=== PATIENT | male | born 1965 | race African-American/Black ===

== ENCOUNTER 2017-02-23 22:17 | Emergency (ER) | payer OTHER ==
[~2017-02-23] VITALS: Ht 175.3 cm; Wt 93.0 kg
[~2017-02-23 22:17] MED LIST: ACETAMINOPHEN-1 EAC1 PO; ACETAMINOPHEN325 M1 PO; ACETAMINOPHEN650 M5 PO; ADVAIR 250-501 EACH; ADVAIR 250-501 EACH IH; ADVAIR 250-501 EACH INH; ALBUTEROL INHAL17 GM IH; ALLOPURINOL 10100 M1 PO; ALPRAZOLAM2 MG PO; AMLODIPINE BESYL5 MG PO; AMLODIPINE PO; ANAPROX; ATIVAN1 MG PO; AVELOX 400 MG400 M1 PO; AZITHROMYCIN 2250 MG PO; BACTRIM DS TAB1 EACH PO; BACTRIM PO; BENADRYL25 MG PO; CEFTIN 250 MG250 MG PO; CELEBREX 200 M200 MG PO; CHEWABLE PRENA1 EACH PO; CITALOPRAM; CLEOCIN HCL150 MG PO; CYCLOBENZAPRINE PO; CYCLOBENZAPRINE5 MG PO; DEPAKOTE500 MG; DEPAKOTE500 MG PO; DIVALPROEX SOD250 M3; DOXEPIN 50MG CA50 M1 GT; DOXYCYCLINE 10100 MG PO; FLEXERIL; GABAPENTIN 100100 MG; GLUCOPHAGE500 MG PO; HYDROCHLOROTHIA25 M1 PO; HYDROCHLOROTHIA25 M2 PO; IBUPROFEN 600600 M1 PO; KEFLEX500 MG PO; KENALOG60 GM; LIORESAL 10 MG10 MG; LIPITOR20 MG PO; MECLIZINE HCL12.5 MG PO; METFORMIN; MICARDIS 80 MG80 MG; MICARDIS HCT 41 EACH PO; MICARDIS40 MG PO; MIRALAX17 GM PO; MOBIC7.5 MG PO; NAPROSYN500 MG; NAPROSYN500 MG PO; NEURONTIN 300300 M1 PO; NICOTINE TRANSD21 M1 TRANSDERM; NORCO 10-325 T1 EACH PO; NORCO 5-325 TA1 EACH PO; NORFLEX100 MG PO; OXYCODONE IR; OXYCODONE-ACET1 EAC2 PO; OXYCONTIN20 M1; OXYCONTIN20 M1 PO; OXYCONTIN30 MG PO; PAROXETINE PO; PAXIL40 MG PO; PERCOCET 5-3251 EACH PO; PEXEVA20 MG PO; PHENYTOIN SODI100 M3 PO; POLYTRIM OPTH; PRAZOSIN 1 MG CA1 M1 PO; PREDNISONE 10 M10 M1; PREDNISONE 2.52.5 M1 PO; PREDNISONE 20 M20 M1 PO; PROAIR HFA8.5 GM IH; PROVENTIL HFA6.7 G1 INH; RISPERIDONE 1 MG1 MG PO; ROXICODONE15 M1 PO; SELENIUM SULFIDE; SIMETHICON CHEW80 M1 PO; SINGULAIR 10 MG10 M1; SINGULAIR 10 MG10 M1 PO; SPIRIVA INH; SPIRIVA18 MCG; TESSALON PERLE100 MG PO; TOPROL XL25 MG; TORADOL; TRAMADOL 50 MG50 MG; TRAMADOL 50 MG50 MG PO; TRIAM60; TRIAMCINOLONE A15 G2 TP; VALIUM2 MG; VENTOLIN HFA INH8 GM; VITAMIN B-150 M1 PO; VITAMIN D3400 UNIT; VYTORIN 10-201 EACH PO; WELLBUTRIN XL300 MG PO; XANAX 0.25 MG0.25 MG; ZANTAC 150MG T150 M1 PO; ZOCOR20 MG; ZOFRAN ODT4 MG PO; ZPAK
[2017-02-23] MEDS ORDERED: OXYCONTIN30 MG (23:33)
[2017-02-23] MEDS ORDERED: [UNRECOGNIZED DRUG - OTHER] TOP (23:36)
[2017-02-24] MEDS ORDERED: PERCOCET 5-3251 EACH PO (00:32)
== END 2017-02-24 01:20 | disposition home or self-care (01) ==
LOC: ER 22:17
DX: S82.831A Other fracture of upper and lower end of right fibula, initial encounter for closed fracture (principal); S40.011A Contusion of right shoulder, initial encounter; M17.11 Unilateral primary osteoarthritis, right knee; E11.9 Type 2 diabetes mellitus without complications; I10 Essential (primary) hypertension; J45.909 Unspecified asthma, uncomplicated; J44.9 Chronic obstructive pulmonary disease, unspecified; F17.210 Nicotine dependence, cigarettes, uncomplicated; Z96.642 Presence of left artificial hip joint; Z88.5 Allergy status to narcotic agent; Z88.6 Allergy status to analgesic agent; W10.9XXA Fall (on) (from) unspecified stairs and steps, initial encounter; Y93.89 Activity, other specified; Y92.89 Other specified places as the place of occurrence of the external cause; Y99.8 Other external cause status

== ENCOUNTER 2019-12-03 21:04 | Emergency (ER) | payer OTHER ==
[~2019-12-03] VITALS: Ht 175.3 cm; Wt 83.9 kg
--- NOTE | ~2019-12-03 | EMS ---
[facility] [address] [place] [address] EMS Patient Care Report Name: BALJIT BLEDSOE Room #: DEP DODIE Vazquez#: [id number] Admission: 12/03/19 Attend Phys: Discharge: 12/03/19 Date of : 61 Report #: [id number] THIS REPORT FOR: //name// Report Transmitted: 12/04/2019 03:45 EMS Care Summary [place], [place]/[facility] Incident [id number] @ 12/03/2019 20:43 Incident Location [address] [place], [place] [id number] Patient BALJIT BLEDSOE Male, 55 Years 1964-02-15 Patient Address [address] [place], [place] [id number] Patient History Hypertension (HTN),Seizures,Knee Replacement,Type 2 Diabetes, Patient Allergies No known allergies, Patient Medications Unknown, Chief Complaint FALL Disposition Transported No Lights/[place] Dispatch Reason Falls Transported To [facility] Narrative DISPATCHED EMERGENCY ON A FALL. 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 GCS 15 AND A/OX4. CONSENTS FOR [place] AND TRANSPORTATION. PT STATES THAT HE HAD KNEE SURGERY ABOUT A [facility] [address] [place] [address] EMS Patient Care Report Name: BALJIT BLEDSOE Room #: DEP ER DonovanTawanda#: [id number] Admission: 12/03/19 Attend Phys: Discharge: 12/03/19 Date of : 61 Report #: [id number] WEEK AGO AND TRIPPED ON HIS ON LEG ABOUT 20 MINUTES AGO. DENIES ANY DIZZINESS OR LOSS OF CONSCIOUSNESS. STATES HE HAS SHARP/CONSTANT PAIN AT 10 TO RIGHT KNEE. RIGHT KNEE IS BANDAGED. DENIES ANY OTHER INJURY OR MEDICAL COMPLAINTS. MOVED WITHOUT INCIDENT TO AMBULANCE VIA STRETCHER. PLACED ON MONITOR AND V/S'S OBTAINED. TRANSPORTED TO [facility] PER PT REQUEST. REASSESSED ENROUTE. REMAINS GCS 15 AND ALERT. PAIN REMAINS UNCHANGED. 2ND SET V/S'S OBTAINED. REPORT CALLED TO HOSPITAL. MOVED WITHOUT INCIDENT TO ER TRIAGE WHEELCHAIR. PT CARE TRANSFERRED TO ED RN. Initial Vitals @20:55P: 100,R: 16,BP: 119/58,Pain: 10/10,GCS: 15,CO: 7,SpO2: 99,Revised Trauma: 12, @20:49P: 108,R: 16,BP: 157/91,Pain: 10/10,GCS: 15,CO: 5,SpO2: 99,Revised Trauma: 12, Assessments @20:49MENTAL:Time Oriented,Person Oriented,Place Oriented,Event Oriented,SKIN:HEENT:Eyes: Right Pupil: 4-mm,Eyes: Left Pupil: 4-mm,Head/Face: No Abnormalities,Neck/Airway: No Abnormalities,LUNG SOUNDS:General: No Abnormalities,ABDOMEN:General: No Abnormalities,PELVIS//GI:EXTREMITIES:Right Leg: KIRSTEN,Capillary Refill: Left Upper: < 2 Sec,Capillary Refill: Right Upper: < 2 Sec,Capillary Refill: Left Lower: < 2 Sec,Capillary Refill: Right Lower: < 2 Sec,Right Leg: Other,Left Arm: No Abnormalities,Right Arm: No Abnormalities,Left Leg: No Abnormalities,PULSE:Radial: 2+ Normal,NEURO:No Abnormalities, Impression Injury Procedures @20:49StretcherResponse: Unchanged@20:48ALS AssessmentResponse: UnchangedSucceeded Timeline 20:42,Call Received 20:42,Dispatch Notified 20:43,Dispatched 20:45,En Route 20:47,On Scene 20:48,At Patient 20:48,ALS Assessment,Response: UnchangedSucceeded, 20:49,Stretcher,Response: Unchanged 20:49,BP: 157/91 M,PULSE: 108,RR: 16 R,SPO2: 99 Ox,ETCO2: ,BG: ,PAIN: 10,GCS: 15, 20:51,Depart Scene 20:55,BP: 119/58 M,PULSE: 100,RR: 16 R,SPO2: 99 Ox,ETCO2: ,BG: ,PAIN: 10,GCS: [address] [address] EMS Patient Care Report Name: BALJIT BLEDSOE Room #: DEP DODIE Vazquez#: [id number] Admission: 12/03/19 Attend Phys: Discharge: 12/03/19 Date of : 61 Report #: [id number] 15, 21:00,At Destination 21:18,Call Closed Disclaimer v1.1 Copyright 2020 [employer] This EMS Care Summary contains data elements from the applicable legal record (which may be displayed differently). It is designed to provide pertinent information for the following purposes: continuity of care, clinical quality, and state data reporting. The complete legal record is available to ED staff and administrators of the receiving hospital in [employer] Patient Tracker. All data is provided "as is."
[~2019-12-03 21:04] MED LIST changes: +OXYCONTIN30 MG; +[UNRECOGNIZED DRUG - OTHER] TOP
[2019-12-03 21:55] VITALS: BP 135/81
== END 2019-12-03 21:56 | disposition home or self-care (01) ==
LOC: ER 21:04
DX: M25.561 Pain in right knee (principal); M25.461 Effusion, right knee; M19.90 Unspecified osteoarthritis, unspecified site; E11.9 Type 2 diabetes mellitus without complications; I10 Essential (primary) hypertension; J45.909 Unspecified asthma, uncomplicated; J44.9 Chronic obstructive pulmonary disease, unspecified; F17.210 Nicotine dependence, cigarettes, uncomplicated; Z76.0 Encounter for issue of repeat prescription; Z79.899 Other long term (current) drug therapy; Z88.6 Allergy status to analgesic agent; Z88.5 Allergy status to narcotic agent; Z96.642 Presence of left artificial hip joint; Z96.651 Presence of right artificial knee joint

== ENCOUNTER 2020-04-01 23:18 | Emergency (ER) | payer OTHER ==
[~2020-04-01] VITALS: Ht 175.3 cm; Wt 79.4 kg
[2020-04-01 23:52] LABS: HEMATOCRIT 40.9 % (42.0-52.0); HEMOGLOBIN 14.2 gm/dL (14.0-18.0); MCH 31.3 pg (26.0-34.0); MCHC 34.8 g/dL (28.0-37.0); MCV 89.9 fL (80.0-100.0); RBC 4.55 mil/uL (4.50-6.00); RDW 14.5 % (10.5-14.5); WBC 6.7 thou/uL (4.0-11.0)
[2020-04-01 23:57] LABS: ANION GAP 11 mmol/L (7-16); BUN 13 mg/dL (7-18); CALCIUM 9.1 mg/dL (8.5-10.1); CHLORIDE 104 mmol/L (98-107); CO2 26 mmol/L (21-32); CREATININE 1.1 mg/dL (0.7-1.3); GLUCOSE 88 mg/dL (74-106); POTASSIUM 3.2 mmol/L (3.5-5.1); SODIUM 141 mmol/L (136-145)
[2020-04-02] LABS: SALICYLATE < 2.8 mg/dL (2.8-20.0)
[2020-04-02 00:34] LABS: URINE BILIRUBIN NEGATIVE (Negative); URINE BLOOD NEGATIVE (Negative); URINE CLARITY CLEAR; URINE COLOR YELLOW; URINE GLUCOSE-RANDOM* NEGATIVE (Negative); URINE KETONES TRACE (Negative); URINE LEUKOCYTES-REFLEX NEGATIVE (Negative); URINE NITRITE-REFLEX NEGATIVE (Negative); URINE PROTEIN (DIPSTICK) NEGATIVE (Negative); URINE SPECIFIC GRAVITY >= 1.030 (1.005-1.035)
[2020-04-02 00:44] LABS: AMP/METHAMP Negative (Negative); BARBITURATES Negative (Negative); BENZODIAZEPINES Negative (Negative); COCAINE POSITIVE (Negative); METHADONE Negative (Negative); OPIATES Negative (Negative); PCP POSITIVE (Negative)
[2020-04-02 08:45] VITALS: BP 128/76
== END 2020-04-02 08:45 | disposition home or self-care (01) ==
LOC: ER 23:18
PROVIDERS: Emergency Medicine
DX: F19.90 Other psychoactive substance use, unspecified, uncomplicated (principal); F22 Delusional disorders; I10 Essential (primary) hypertension; E11.9 Type 2 diabetes mellitus without complications; J44.9 Chronic obstructive pulmonary disease, unspecified; F17.210 Nicotine dependence, cigarettes, uncomplicated; Z79.899 Other long term (current) drug therapy; Z88.6 Allergy status to analgesic agent; Z88.5 Allergy status to narcotic agent

== ENCOUNTER 2020-04-05 20:01 | Emergency (ER) | payer OTHER ==
[~2020-04-05] VITALS: Ht 175.3 cm; Wt 79.4 kg
[~2020-04-05 20:01] MED LIST changes: -AMLODIPINE BESYL5 MG PO; +NORVASC 2.5 MG2.5 M1 PO
[2020-04-05 20:31] LABS: HEMATOCRIT 41.4 % (42.0-52.0); HEMOGLOBIN 14.2 gm/dL (14.0-18.0); MCH 31.1 pg (26.0-34.0); MCHC 34.2 g/dL (28.0-37.0); MCV 90.8 fL (80.0-100.0); PLATELET COUNT 257 thou/uL (150-400); RBC 4.55 mil/uL (4.50-6.00); RDW 14.3 % (10.5-14.5)
[2020-04-05 20:42] LABS: CALCIUM 9.1 mg/dL (8.5-10.1); CREATININE 1.1 mg/dL (0.7-1.3); POTASSIUM 3.4 mmol/L (3.5-5.1)
[2020-04-05 20:48] LABS: ALBUMIN 3.4 g/dL (3.4-5.0); MAGNESIUM 1.6 mg/dL (1.8-2.4); TOTAL BILIRUBIN 0.3 mg/dL (0.2-1.0); TOTAL PROTEIN 7.8 g/dL (6.4-8.2)
[2020-04-05 21:30] LABS: ABSOLUTE NEUTROPHILS 2.1 thou/uL (1.4-8.2); ATYPICAL LYMPHS 2 %
[2020-04-05 21:58] VITALS: BP 155/87
--- NOTE | 2020-04-07 14:20 | EKG ---
[facility] [place] [address] ELECTROCARDIOGRAM REPORT Name: BALJIT BLEDSOE Room #: DEP [facility]#: [id number] Admission: 04/05/20 Attend Phys: Discharge: 04/05/20 Date of : 61 Report #: [id number] THIS REPORT FOR: cc: [facility] - Clinic physician unknown [facility] - Clinic physician unknown Evan Chang MD ~ THIS REPORT FOR: //name// [facility] ED Test Date: 2020-04-05 Test Time: 20:05:24 Pat Name: BALJIT BLEDSOE Department: Room: 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
== END 2020-04-05 22:28 | disposition home or self-care (01) ==
LOC: ER 20:01
PROVIDERS: Emergency Medicine
DX: R56.9 Unspecified convulsions (principal); F10.10 Alcohol abuse, uncomplicated; Y90.1 Blood alcohol level of 20-39 mg/100 ml; E83.42 Hypomagnesemia; M19.90 Unspecified osteoarthritis, unspecified site; E11.9 Type 2 diabetes mellitus without complications; I10 Essential (primary) hypertension; J44.9 Chronic obstructive pulmonary disease, unspecified; F17.210 Nicotine dependence, cigarettes, uncomplicated; Z96.651 Presence of right artificial knee joint; Z96.642 Presence of left artificial hip joint; Z91.14 Patient's other noncompliance with medication regimen; Z88.6 Allergy status to analgesic agent; Z88.5 Allergy status to narcotic agent

== ENCOUNTER 2020-04-09 07:11 | Emergency (ER) | payer OTHER ==
[~2020-04-09] VITALS: Ht 175.3 cm; Wt 79.4 kg
[2020-04-09 07:12] VITALS: BP 135/77
== END 2020-04-09 08:05 | disposition home or self-care (01) ==
LOC: ER 07:11
DX: R56.9 Unspecified convulsions (principal); I10 Essential (primary) hypertension; E11.9 Type 2 diabetes mellitus without complications; J44.9 Chronic obstructive pulmonary disease, unspecified; F17.210 Nicotine dependence, cigarettes, uncomplicated; Z79.899 Other long term (current) drug therapy; Z88.5 Allergy status to narcotic agent; Z88.6 Allergy status to analgesic agent